=== PATIENT | female | born 1975 | race Two or more races ===

== ENCOUNTER 2023-05-28 20:34 | Emergency (ER) | payer MEDICAID, OTHER ==
[~2023-05-28] VITALS: Ht 157.5 cm; Wt 59.1 kg
[2023-05-28] MEDS: HYDROcodone-ACET 10/325MG TAB PO ONE (21:02)
[2023-05-28 22:54] LABS: Basophils # (auto) 0 10 ^3/uL (0-0.2); Basophils % (auto) 0.5 % (0.0-2.0); Eosinophils # (auto) 0.1 10 ^3/uL (0-0.8); Eosinophils % (auto) 1.5 % (0.0-7.0); Hematocrit 40.3 % (36.0-46.0); Hemoglobin 13.5 g/dL (12.2-16.2); Lymphocytes # (auto) 2.7 10 ^3/uL (0.4-5.4); Lymphocytes % (auto) 37.5 % (10.0-50.0); Mean Corpuscular Hemoglobin 30.4 pg (28.0-32.0); Mean Corpuscular Hgb Conc. 33.5 g/dL (32.0-36.0); Mean Corpuscular Volume 90.9 fL (80.0-100.0); Monocytes # (auto) 0.5 10 ^3/uL (0-1.3); Monocytes % (auto) 6.9 % (0.0-12.0); Neutrophils # (auto) 3.8 10 ^3/uL (1.6-8.6); Neutrophils % (auto) 53.6 % (37.0-80.0); Nucleated Red Blood Cells % 0.1 %; Red Blood Cells 4.43 10^6/uL (4.0-5.20); White Blood Cell 7.2 10^3/uL (4.4-10.8)
[2023-05-28 23:08] LABS: Alanine Aminotransferase 20 U/L (7-40); Albumin 4.6 g/dL (3.2-4.8); Alkaline Phosphatase 64 U/L (46-116); Anion Gap 6 (5-15); Aspartate Aminotransferase 23 U/L (13-40); BUN/Creatinine Ratio 16.5 (10.0-20.0); Bilirubin, Total 0.4 mg/dL (0.2-1.0); Blood Urea Nitrogen 13 mg/dL (9-23); CRP High Sensitivity 0.25 mg/dL (<1.0); Calcium 9.9 mg/dL (8.5-10.1); Carbon Dioxide 28 mmol/L (20-30); Chloride 108 mmol/L (98-107); Glucose 101 mg/dL (74-106); Sodium 142 mmol/L (136-145); Total Protein 7.5 g/dL (5.7-8.2)
[2023-05-28 23:29] LABS: Erythrocyte Sedimentation Rate 19 mm/hr (0-20)
[2023-05-29] MEDS ORDERED: MECL1TAB42 PO (02:07)
[2023-05-29] MEDS ORDERED: ZOFR4T PO (02:08)
[2023-05-29] MEDS: MECLIZINE HCL 25 MG TAB PO ONE (03:06)
[2023-05-29] MEDS: METOCLOPRAMIDE HCL 5MG/ml INJ 2ml VIAL IM ONE (03:06)
[2023-05-29] MEDS: DexAMETHasone SOD PHOS 10MG/1ML VIAL INJ IM ONE (03:06)
[2023-05-29 03:14] VITALS: BP 107/67
[2023-05-29 03:15] VITALS: PULSE 68; RESP 16; O2SAT 97
[2023-05-29] MEDS: KETOROLAC TROMETH 30 MG/ML 1ML VIAL IM ONE (03:53)
[2023-05-29] MEDS: diphenhdrAMINE HCL 50 MG/1 ML VL IM ONE (03:53)
== END 2023-05-29 03:57 | disposition home or self-care (01) ==
LOC: EDBD 20:34 → ER 20:34
DX: R51.9 Headache, unspecified (principal); R42 Dizziness and giddiness; Z88.0 Allergy status to penicillin
CPT/HCPCS: 36415; 70450; 80053; 85025; 85652; 86141; 93005; 96372; 99285; J1100; J2765; J8597; J1885